=== PATIENT | female | born 1955 | race Caucasian/White ===

== ENCOUNTER 2017-09-14 10:03 | Observation (INO) ==
[2017-09-14] MEDS ORDERED: Ondansetron 4 MG/2 ML VIAL IVP ONE ×2 (10:16→13:04)
[2017-09-14] MEDS ORDERED: *HR* Morphine 2 MG/ML SYRINGE IVP ONE ×2 (10:16→13:04)
--- NOTE | 2017-09-14 10:17 | Emergency Department Note ---
Disposition Clinical Impression: Compression fracture of body of thoracic vertebra Disposition: Admitted As Inpatient Condition: Good Fall HPI - General Stated Complaint: Fell down stairs - History of Present Illness HPI Narrative: 62-year-old white female presents emergency department via ambulance after a fall at home. She says that she was going down her stairs to use the bathroom when she slipped and fell. She says that she fell down 2 or 3 steps and then ended up on her backside. She complains of pain in her lower back. She says that she has never had a problem with her back that she could remember. She denies any other injuries at this time. En route EMS thought that she was having a cardiac abnormality and were concerned about a low heart rate. The patient denies any dizziness or chest pain prior to or after her fall. Her position of comfort is laying flat. - Related Data Home Medications Medication Instructions Recorded Confirmed Aspirin [Lo-Dose Aspirin EC] 81 mg PO DAILY 09/14/17 09/14/17 Isosorbide MONOnitrate [Isosorbide 60 mg PO DAILY 09/14/17 09/14/17 Mononitrate] LORazepam [Ativan] 0.5 mg PO TID 09/14/17 09/14/17 Metoprolol [Lopressor] 12.5 mg PO BID 09/14/17 09/14/17 Omeprazole [PriLOSEC] 20 mg PO DAILY 09/14/17 09/14/17 Rosuvastatin [Crestor] 20 mg PO HS 09/14/17 09/14/17 Previous Rx's Medication Instructions Recorded Cyclobenzaprine [Flexeril] 10 mg PO TID #15 tablet 09/14/17 Docusate [Colace] 100 mg PO BID #20 capsule 09/14/17 Ibuprofen [Motrin] 800 mg PO Q8HR #15 tablet 09/14/17 OxyCODONE/APAP 5/325 [Percocet 1 each PO Q4HR PRN #10 tablet 09/14/17 5/325 MG] Allergies Allergy/AdvReac Type Severity Reaction Status Date / Time No Known Allergies Allergy Verified 09/14/17 10:20 All systems ED: reviewed and negative except as stated. Constitutional: Denies: fever, chills, weakness, weight change Eyes: Denies: eye pain, eye discharge, vision change ENT ED: Denies: ear pain, throat pain, dental pain, hearing loss, epistaxis, congestion, dysphagia Cardiovascular: Reports: as per HPI. Denies: chest pain, palpitations Respiratory: Denies: cough, dyspnea, wheezes, hemoptysis, stridor Gastrointestinal: Denies: abdominal pain, nausea, vomiting, diarrhea, constipation, hematemesis, melena, hematochezia Genitourinary: Denies: dysuria, frequency, hematuria, discharge Musculoskeletal: Reports: as per HPI, back pain. Denies: neck pain, arthralgia Integumentary: Denies: rash, abrasion, lesions Neurological: Reports: as per HPI. Denies: headache, weakness, numbness, paresthesias, confusion, abnormal gait, vertigo Psychiatric: Denies: anxiety, depression, suicidal thoughts, homicidal thoughts , auditory hallucinations, visual hallucinations Endocrine: Denies: fatigue Hematological/Lymphatic: Denies: easy bleeding, easy bruising Allergic/Immunologic: Denies: facial swelling, urticaria Physical Exam - General Limitations: no limitations General appearance: alert, in no apparent distress - Head Head exam: atraumatic, normocephalic, normal inspection - Eye Eye exam: Present: normal appearance, PERRL, EOMI - ENT ENT exam: normal exam, normal oropharynx, mucous membranes moist - Neck Neck exam: Present: normal inspection, full ROM, trachea midline. Absent: tenderness (No cervical spine tender points or step-off palpated) - Chest Chest inspection: Present: normal inspection, symmetric chest wall rise - Respiratory Respiratory exam: Present: normal lung sounds bilaterally - Cardiovascular Cardiovascular exam: Present: regular rate, normal rhythm, normal heart sounds - Abdominal Exam Abdominal exam: Present: soft, Non-Tender, mass, other (Ventral hernia that appears to be incisional, nontender). Absent: tenderness, distention, guarding , rebound, rigidity, organomegaly - Extremities Exam Extremities exam: Present: normal inspection, full ROM, normal capillary refill. Absent: tenderness, pedal edema - Expanded Lower Extremity Exam Hip/Pelvis exam: Present: normal inspection, full ROM. Absent: tenderness, deformity, crepitus, dislocation Upper leg exam: Present: normal inspection, full ROM. Absent: tenderness - Back Exam Back exam: Present: normal inspection, other (Pain with flexion and extension of the low back without vertebral spine tender points that are palpable.). Absent: full ROM, paraspinal tenderness, vertebral tenderness - Neurological Exam Neurological exam: Present: alert, oriented X3, CN II-XII intact. Absent: motor sensory deficit - Psychiatric Psychiatric exam: Present: normal affect, normal mood - Skin Skin exam: Present: warm, dry, intact, normal color Course Course Narrative: The patient remained stable throughout her emergency department stay. We discussed admission for pain control or an outpatient trial. She would prefer to be discharged home and try to control her pain there without a hospital admission. Vital Signs Temperature 97.5 F L 09/14/17 10:12 Pulse Rate 52 09/14/17 10:12 Respiratory Rate 16 09/14/17 10:12 Blood Pressure 111/64 09/14/17 10:12 O2 Sat by Pulse Oximetry 97 09/14/17 10:12 Temperature 97.5 F L 09/14/17 10:12 Pulse Rate 61 09/14/17 13:41 Respiratory Rate 16 09/14/17 13:41 Blood Pressure 115/64 09/14/17 13:41 O2 Sat by Pulse Oximetry 93 09/14/17 13:41 Oxygen Delivery Oxygen Delivery Room Air Fall - Lab Data Lab results reviewed: Yes I reviewed the patient's lab results. Result diagrams: 09/14/17 10:30 09/14/17 10:30 Lab Results 09/14/17 09/14/17 09/14/17 Range/Units 10:30 10:30 10:30 WBC 9.1 (4.3-11.1) K/mcL RBC 4.75 (3.82-4.97) M/mcL Hgb 14.6 (11.5-15.4) g/dL Hct 43.6 (35.3-44.9) % MCV 91.8 (83.0-100.0) fL MCH 30.7 (28.0-33.3) pg MCHC 33.5 (31.6-35.5) g/dL RDW 13.1 (11.5-14.5) % Plt Count 160 (140-400) K/mcL MPV 11.5 (9.4-12.4) fL Immature Gran % 0.8 (0-4) % Seg Neutrophils % 63.5 % Lymphocytes % 24.6 % Monocytes % 7.3 % Eosinophils % 2.9 % Basophils % 0.9 % Neutrophils # 5.8 (1.6-8.9) K/mcL Lymphocytes # 2.2 (0.6-4.6) K/mcL Monocytes # 0.7 (0.0-1.3) K/mcL Eosinophils # 0.3 (0.0-0.6) K/mcL Basophils # 0.1 (0.0-0.2) K/mcL PT 11.1 (9.4-12.1) Seconds INR 1.0 Sodium 141 (136-145) mEq/L Potassium 3.9 (3.5-4.5) mEq/L Chloride 108 (98-109) mEq/L Carbon Dioxide 25 (19-29) mEq/L BUN 17 (7-20) mg/dL Creatinine 0.78 (0.57-1.11) mg/dL Est GFR ( Amer) > 60 (> 60) Est GFR (Non-Af Amer) > 60 (> 60) BUN/Creatinine Ratio 22 (6-26) Glucose 114 H (70-99) mg/dL Calculated Osmolality 294 (280-300) Calcium 9.4 (8.6-10.8) mg/dL Total Bilirubin 0.2 (0.2-1.2) mg/dL AST 18 (5-34) Units/L ALT 15 (0-55) Units/L Alkaline Phosphatase 140 H (38-126) Units/L Troponin I (0-0.03) ng/mL Serum Total Protein 6.6 (6.0-8.3) g/dL Albumin 3.3 L (3.5-5.0) g/dL Globulin 3.3 (2.4-3.5) g/dL Albumin/Globulin Ratio 1.0 L (1.1-2.2) Urine Color (Yellow) Urine Clarity (Clear) Urine pH (5.0-8.0) pH Units Ur Specific [place] (1.010-1.025) Urine Protein (Neg-Trace) mg/dL Urine Glucose (UA) (Normal) mg/dL Urine Ketones (Negative) mg/dL Urine Blood (Negative) Urine Nitrite (Negative) Urine Bilirubin (Negative) Urine Urobilinogen (Normal) mg/dL Ur Leukocyte Esterase (Negative) Ur Culture Indicated? (NO) 09/14/17 09/14/17 Range/Units 10:30 12:55 WBC (4.3-11.1) K/mcL RBC (3.82-4.97) M/mcL Hgb (11.5-15.4) g/dL Hct (35.3-44.9) % MCV (83.0-100.0) fL MCH (28.0-33.3) pg MCHC (31.6-35.5) g/dL RDW (11.5-14.5) % Plt Count (140-400) K/mcL MPV (9.4-12.4) fL Immature Gran % (0-4) % Seg Neutrophils % % Lymphocytes % % Monocytes % % Eosinophils % % Basophils % % Neutrophils # (1.6-8.9) K/mcL Lymphocytes # (0.6-4.6) K/mcL Monocytes # (0.0-1.3) K/mcL Eosinophils # (0.0-0.6) K/mcL Basophils # (0.0-0.2) K/mcL PT (9.4-12.1) Seconds INR Sodium (136-145) mEq/L Potassium (3.5-4.5) mEq/L Chloride (98-109) mEq/L Carbon Dioxide (19-29) mEq/L BUN (7-20) mg/dL Creatinine (0.57-1.11) mg/dL Est GFR ( Amer) (> 60) Est GFR (Non-Af Amer) (> 60) BUN/Creatinine Ratio (6-26) Glucose (70-99) mg/dL Calculated Osmolality (280-300) Calcium (8.6-10.8) mg/dL Total Bilirubin (0.2-1.2) mg/dL AST (5-34) Units/L ALT (0-55) Units/L Alkaline Phosphatase (38-126) Units/L Troponin I 0.01 (0-0.03) ng/mL Serum Total Protein (6.0-8.3) g/dL Albumin (3.5-5.0) g/dL Globulin (2.4-3.5) g/dL Albumin/Globulin Ratio (1.1-2.2) Urine Color Yellow (Yellow) Urine Clarity Clear (Clear) Urine pH 7.0 (5.0-8.0) pH Units Ur Specific [place] 1.015 (1.010-1.025) Urine Protein 30 H (Neg-Trace) mg/dL Urine Glucose (UA) Normal (Normal) mg/dL Urine Ketones Negative (Negative) mg/dL Urine Blood Negative (Negative) Urine Nitrite Negative (Negative) Urine Bilirubin Negative (Negative) Urine Urobilinogen Normal (Normal) mg/dL Ur Leukocyte Esterase Negative (Negative) Ur Culture Indicated? NO (NO) - Radiology Data Radiology results reviewed: Yes I reviewed the patient's radiology results. CT scan of the abdomen and pelvis with IV contrast IMPRESSION: Acute T12 compression fracture with loss of 30% of vertebral body height. Slight retropulsion is identified of posterosuperior endplate. Cholelithiasis. No acute visceral injury. Small to moderate-sized infraumbilical lower abdominal wall hernia in the midline containing a loop of small bowel. Moderate to large left supraumbilical hernia containing small bowel. No bowel obstruction is evident. Both hernias have increased in size since previous exam of 2013. D/ / 09/14/2017 12:10:03 Amrik Leggett MD / gianni Interpreting Provider: Amrik Leggett MD
[2017-09-14 10:50] LABS: Basophils # 0.1 K/mcL (0.0-0.2); Basophils % 0.9 %; Eosinophils # 0.3 K/mcL (0.0-0.6); Eosinophils % 2.9 %; Hematocrit 43.6 % (35.3-44.9); Hemoglobin 14.6 g/dL (11.5-15.4); Immature Granulocytes % 0.8 % (0-4); Lymphocytes # 2.2 K/mcL (0.6-4.6); Lymphocytes % 24.6 %; Mean Corpuscular HGB Conc 33.5 g/dL (31.6-35.5); Mean Corpuscular Hemoglobin 30.7 pg (28.0-33.3); Mean Corpuscular Volume 91.8 fL (83.0-100.0); Mean Platelet Volume 11.5 fL (9.4-12.4); Monocytes # 0.7 K/mcL (0.0-1.3); Monocytes % 7.3 %; Neutrophils # 5.8 K/mcL (1.6-8.9); Platelet Count 160 K/mcL (140-400); Red Blood Count 4.75 M/mcL (3.82-4.97); Red Cell Distribution Width 13.1 % (11.5-14.5); Segmented Neutrophils % 63.5 %
[2017-09-14 10:51] LABS: Prothrombin Time 11.1 Seconds (9.4-12.1)
[2017-09-14 11:03] LABS: Alanine Aminotransferase 15 Units/L (0-55); Albumin 3.3 g/dL (3.5-5.0); Alkaline Phosphatase 140 Units/L (38-126); Aspartate Amino Transferase 18 Units/L (5-34); BUN/Creatinine Ratio 22 (6-26); Bilirubin,Total 0.2 mg/dL (0.2-1.2); Blood Urea Nitrogen 17 mg/dL (7-20); Calcium 9.4 mg/dL (8.6-10.8); Carbon Dioxide 25 mEq/L (19-29); Chloride 108 mEq/L (98-109); Globulin 3.3 g/dL (2.4-3.5); Glucose 114 mg/dL (70-99); Osmolality,Calculated 294 (280-300); Potassium 3.9 mEq/L (3.5-4.5); Sodium 141 mEq/L (136-145); Total Protein 6.6 g/dL (6.0-8.3); eGFR For African Americans > 60 (> 60); eGFR For Non-African Americans > 60 (> 60)
[2017-09-14 12:59] LABS: Bilirubin,Urine Negative (Negative); Blood,Urine Negative (Negative); Clarity,Urine Clear (Clear); Color,Urine Yellow (Yellow); Glucose,Urine (UA) Normal (Normal); Ketones,Urine Negative (Negative); Leukocyte Esterase,Urine Negative (Negative); Nitrite,Urine Negative (Negative); Protein,Urine 30 mg/dL (Neg-Trace); Specific Gravity,Urine 1.015 (1.010-1.025); Urobilinogen,Urine Normal (Normal)
[2017-09-14] MEDS ORDERED: Ketorolac 30 MG/ML VIAL IVP ONE (13:04)
[2017-09-14] MEDS ORDERED: Orphenadrine 60 MG/2 ML VIAL IVP PRN ×2 (13:04→17:35)
[2017-09-14] MEDS ORDERED: Ondansetron 4 MG/2 ML VIAL IVP PRN (17:35)
[2017-09-14] MEDS ORDERED: 0.9 % Sodium Chloride 1,000 ML IVC SCH (17:35)
[2017-09-14] MEDS ORDERED: Acetaminophen 325 MG TABLET PO PRN (17:35)
[2017-09-14] MEDS ORDERED: Ondansetron ODT 4 MG TAB.RAPDIS SL PRN (17:35)
[2017-09-14] MEDS ORDERED: *HR* Morphine 2 MG/ML SYRINGE IVP PRN (17:35)
[2017-09-14] MEDS ORDERED: *HR* HYDROmorphone (PF) 1 MG/ML SYRINGE IVP PRN (17:35)
[2017-09-14] MEDS ORDERED: Naloxone 0.4 MG/ML INJ IVP PRN (17:35)
[2017-09-14] MEDS: *HR* OxyCODONE Immed Rel 5 MG TABLET PO PRN (18:33)
[2017-09-14] MEDS ORDERED: Isosorbide MONOnitrate (24 HR) 60 MG TAB.ER.24H PO SCH (21:00)
[2017-09-14] MEDS ORDERED: *HR* LORazepam 0.5 MG TABLET PO SCH (21:00)
--- NOTE | 2017-09-14 21:42 | Internal Med History&Physical ---
Date of Encounter: 09/14/17 Time of Encounter: 21:02 Assessment and Plan (1) Compression fracture of body of thoracic vertebra Current visit: Yes Status: Acute Patient is admitted in observation bed with history of compression fracture of T12 from her fall against the step. Surprisingly she does not have tenderness in that area on palpation. She has a loss of 30% of the vertebral body height and slight retropulsion identified of the posterior superior endplate. Tonight , few hours after admission, she is resting comfortably. Tomorrow she will have PT, OT to reassess her pain level. We need to be sure she can maintain her ADLs safely before discharge to home. (2) Coronary artery disease involving autologous artery coronary bypass graft Current visit: Yes Status: Chronic History of coronary artery disease and bypass surgery twice. She has had no cardiac respiratory symptoms. We will continue her current medications. Qualifiers: Associated angina: without angina Qualified Code(s): I25.810 - Atherosclerosis of coronary artery bypass graft(s) without angina pectoris (3) Hypertension Current visit: Yes Status: Chronic Hypertension is under control despite the severe pain Qualifiers: Hypertension type: essential hypertension Qualified Code(s): I10 - Essential (primary) hypertension (4) Hyperlipidemia Current visit: Yes Status: Chronic Chronic history of hyperlipidemia Qualifiers: Hyperlipidemia type: unspecified Qualified Code(s): E78.5 - Hyperlipidemia , unspecified (5) Incisional hernia of anterior abdominal wall without obstruction or gangrene Current visit: Yes Status: Chronic Uncomplicated large left periumbilical hernia. (6) DVT prophylaxis Current visit: Yes Status: Acute We will use Lovenox for DVT prophylaxis as she will be likely be bedridden Internal Medicine - H&P: HPI Chief complaint: I fell and hurt my back Admitted From: Emergency Dept Plans for Post Hospital Care: Home History of present illness: Ms. Ulloa is a 62 year old female with known history of coronary artery disease and CABG twice, hypertension, acid reflux, history of abdominal aortic aneurysm repair 2011 with resultant incisional hernia. She was to usual self today until when walking down 16 steps in the morning to have a cup of coffee she fell on the last 5. Her foot slipped forward she slid down 2-3 steps and then she "hit one of them hard" and she fell backward and hit her back against the horizontal portion of one of the steps. She was in severe pain and could not move out of that position. The life squad came and transported her to the emergency room. Her pain was severe and she had at least 2 intravenous doses of MS Contin, IV Toradol and Norvasc to give her some relief. It was reported that she was still not able to stand to be able to leave the emergency room because of severe back pain. CT scan of the abdomen revealed acute T12 compression fracture with loss of 30% of vertebral body height. There was slight retropulsion identified of the posterior superior endplate. Rest of the CT scan was unremarkable except for very large supraumbilical hernia containing bowel without complication. She said that right now she is resting fairly comfortably. She keeps the head of her bed at about 45 degree angle she has no complaints. She denies any cardiac type chest pain, dyspnea, GI or symptoms. She denies any pain radiating down either leg or radiating elsewhere. She does not have any history of osteoporosis, but she has not had a DEXA scan for evaluation. Past Med Surg Social Fam HX - Past Medical History Medical history: CHF (In remote past. No CHF for many years.), coronary artery disease (CABG 1994 and 2007), GERD, hyperlipidemia, hypertension, myocardial infarction Psychiatric history: anxiety (Controlled with minimal amount of lorazepam. No escalation of its use. No abuse noted.) - Past Surgical History Surgical History: coronary bypass (CABG) (1994 and 2007), other (Aortic aneurysm repair and subsequent periumbilical hernia) - Social History Smoking Status: Current every day smoker Smokeless Tobacco Status: No Alcohol use: none Drug use: none Internal Medicine - H&P: Meds Aspirin [Lo-Dose Aspirin EC] 81 mg PO DAILY 09/14/17 [History] Docusate [Colace] 100 mg PO BID #20 capsule 09/14/17 [Rx] Ibuprofen [Motrin] 800 mg PO Q8HR #15 tablet 09/14/17 [Rx] Isosorbide MONOnitrate [Isosorbide Mononitrate] 30 mg PO BID 09/14/17 [History] LORazepam [Ativan] 0.5 mg PO TID 09/14/17 [History] Metoprolol Succinate 12.5 mg PO BID 09/14/17 [History] Omeprazole [PriLOSEC] 40 mg PO DAILY 09/14/17 [History] Rosuvastatin [Crestor] 40 mg PO HS 09/14/17 [History] 3 Allergy/AdvReac Type Severity Reaction Status Date / Time No Known Allergies Allergy Verified 09/14/17 10:20 - Constitutional Constitutional: falls (As in history of present illness), no fever(s), no malaise, no weakness - EENT Eyes: loss of vision (Clinically 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), no change in vision, no tunnel vision, no other visual disturbances Ears: no ear pain Nose, mouth and throat: no neck mass, no neck pain, no sore throat - Cardiovascular Cardiovascular ROS IM: no chest pain, no claudication, no dyspnea, no dyspnea on exertion, no edema, no lightheadedness, no orthopnea, no syncope - Respiratory Respiratory: no cough, no hemoptysis, no dyspnea on exertion, no wheezing - Gastrointestinal Gastrointestinal: no abdominal pain, no constipation, no diarrhea - Genitourinary Genitourinary: no dysuria, no flank pain, no urinary frequency, no urinary hesitancy, no vaginal discharge Menstruation: post menopausal - Musculoskeletal Musculoskeletal ROS IM: back pain (As history of present illness), no joint swelling, no muscle cramps, no muscle weakness - Integumentary Integumentary IM: no rash, no jaundice - Neurological Neurological ROS: no abnormal movements, no abnormal speech, no behavioral changes, no focal weakness, no headache(s), no lack of coordination, no loss of vision, no memory loss, no numbness, no paresthesias, no radicular pain - Hematologic/Lymphatic Hematologic/Lymphatic: no lymphadenopathy - Allergic/Immunologic Allergic/Immunologic: no uticaria, no wheezing - Constitutional Vitals: Temp Pulse Resp BP Pulse Ox 97.5 F L 61 16 113/60 93 09/14/17 16:42 09/14/17 13:41 09/14/17 16:42 09/14/17 16:42 09/14/17 13:41 General appearance: Present: mild distress, A&O X 3, answers questions appropriately - Head Head exam: Present: atraumatic - Eye Eye exam: Present: PERRL, conjuntiva pink. Absent: EOMI (She has disconjugate gaze at times because the right eye is blind.) - ENT ENT exam: Present: mucous membranes moist, normal exam, normal oropharynx - Neck Neck exam general surgery: Present: normal inspection, nuchal rigidity. Absent : lymphadenopathy, tenderness, thyromegaly - Respiratory Respiratory exam: Present: decreased breath sounds, CTAB. Absent: rales, respiratory distress, rhonchi, stridor - Cardiovascular Cardiovascular exam: Present: RRR, +S1, +S2. Absent: systolic murmur, tachycardia - GI/Abdominal GI/Abdominal exam: Present: diminished bowel sounds. Absent: bruit, hernia, hepatomegaly, rigid, splenomegaly, tenderness Additional comments: Patient chronically has a large incisional hernia. It measures wider than my hand. It is soft and nontender. - Extremities Exam Extremities exam: Present: full ROM. Absent: calf tenderness, pedal edema, tenderness, radial pulses palpable and symmetrical - Back Exam Additional comments: Surprisingly there is no tenderness on palpation over midline spine or paraspinal muscles. She was able to sit at the edge of the bed with much assistance. She needed help getting back into bed, I held her legs to help swing her legs back up onto the bed. 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 Absent: no focal deficits, facial droop - Skin Skin exam: Absent: excoriation, mottled, petechiae, rash Internal Med - H&P Results - Labs CBC & Chem 7: 09/14/17 10:30 09/14/17 10:30 Labs: Labs have been reviewed. Minimal glucose elevation.
[2017-09-14] MEDS ORDERED: Isosorbide MONOnitrate (24 HR) 30 MG TAB.ER.24H PO SCH (21:43)
[2017-09-14] MEDS: Metoprolol XL (24 HR) Succ 25 MG TAB.ER.24H PO SCH (23:01)
[2017-09-14] MEDS: *HR* LORazepam 0.5 MG TABLET PO PRN (23:02)
[2017-09-15] MEDS: *HR* OxyCODONE Immed Rel 5 MG TABLET PO PRN ×2 (04:34→13:10)
[2017-09-15] MEDS ORDERED: *HR* Enoxaparin 40 MG/0.4 ML SYRINGE SQ SCH (06:00)
--- NOTE | 2017-09-15 07:06 | Internal Med Progress Note ---
Date of Encounter: 09/15/17 Time of Encounter: 07:06 - Assessment and plan (1) Compression fracture of body of thoracic vertebra Current Visit: Yes Status: Acute Assessment and plan: Severe pain in the dorsal spine area. Surprisingly there is not tenderness on palpation though. Her mobility is improving but she still needs assistance with even sitting up in bed. We will continue with the Roxicodone as well as the Norflex. PT and OT will see her today regarding therapies, grooming and ADLs, assessing her limitations and safety issues. (2) Coronary artery disease involving autologous artery coronary bypass graft Current Visit: Yes Status: Chronic Assessment and plan: No cardiac or respiratory symptoms. Qualifiers: Associated angina: without angina Qualified Code(s): I25.810 - Atherosclerosis of coronary artery bypass graft(s) without angina pectoris (3) Hypertension Current Visit: Yes Status: Chronic Assessment and plan: Hypertension is under control Qualifiers: Hypertension type: essential hypertension Qualified Code(s): I10 - Essential (primary) hypertension (4) Hyperlipidemia Current Visit: Yes Status: Chronic Qualifiers: Hyperlipidemia type: unspecified Qualified Code(s): E78.5 - Hyperlipidemia , unspecified (5) Incisional hernia of anterior abdominal wall without obstruction or gangrene Current Visit: Yes Status: Chronic Assessment and plan: No palpitations or incisional hernia. We will see how she does with her binder. This may actually be helpful for her back. (6) DVT prophylaxis Current Visit: Yes Status: Acute - Subjective Interval history: Patient thinks she did well through the night. She continues to have low thoracic and lumbar pain. She denies a cardiac symptoms. She denies respiratory symptoms. No GI or symptoms. She denies any pain or weakness in lower extremities. In the middle of the night she did have the muscle relaxer again that she did have spasm in the back. She had Roxicodone at approximately 6:30 PM and then again in the middle the night. - Constitutional Vitals: Temp Pulse Resp BP Pulse Ox 98.3 F 67 16 130/79 90 09/15/17 07:02 09/15/17 07:02 09/15/17 07:02 09/15/17 07:02 09/15/17 07:02 General appearance: Present: mild distress, A&O X 3, answers questions appropriately - Respiratory Respiratory exam: Present: decreased breath sounds, CTAB - Cardiovascular Cardiovascular exam: Present: RRR, +S1, +S2, systolic murmur (1 the 2/6 systolic murmur) - GI/Abdominal GI/Abdominal exam: Present: soft. Absent: tenderness Additional comments: Her chronic large incisional hernia is present without complication or tenderness. - Extremities Exam Extremities exam: Present: full ROM. Absent: calf tenderness, tenderness Additional comments: Can bend her knees and lower extremities in bed without difficulty. - Back Exam Back exam: Present: paraspinal tenderness (Mild paraspinal tenderness.). Absent : vertebral tenderness (No localizing vertebral tenderness or drop off or deformity) Additional comments: She was able to go from 45 degrees supine to seated upright by grabbing onto bed side rails. To get back into bed she needed assistance lifting her legs swinging them back onto the bed. She had moderate distress. - Neurological Exam Neurological exam: Present: no focal deficits Internal Medicine: Result - Labs CBC & Chem 7: 09/14/17 10:30 09/14/17 10:30 - ABG Interpretation ABG results: PT/INR, D-dimer PT 11.1 Seconds (9.4-12.1) 09/14/17 10:30 - VTE Documentation of Mechanical Device: Graduated compression elastic hosiery Consult Discharge Plan - Plan Referrals: Emeterio Augustine MD [Primary Care Provider] -
[2017-09-15] MEDS: Ibuprofen 400 MG TABLET PO PRN ×2 (08:15→14:40)
[2017-09-15] MEDS: Metoprolol XL (24 HR) Succ 25 MG TAB.ER.24H PO SCH (08:17)
[2017-09-15] MEDS ORDERED: Isosorbide MONOnitrate (24 HR) 60 MG TAB.ER.24H PO SCH (09:00)
[2017-09-15] MEDS ORDERED: Aspirin Enteric Coated 81 MG Tablet PO SCH (09:00)
[2017-09-15 11:46] VITALS: BP 125/68
--- NOTE | 2017-09-15 12:52 | Electrocardiograph Report ---
[place] [id number] Test Date: 2017-09-14 Pat Name: Daphne Ulloa Department: 2000 Room: 113 Gender: F Chief Psychologist: : 1955 Requested By: Filipe Solis Order Number: [id number] Reading MD: Kymberly Merrill Measurements Intervals [place] Rate: 53 P: 65 NH: 160 QRS: -48 QRSD: 102 T: -49 QT: 469 QTc: 453 Interpretive Statements SINUS BRADYCARDIA LEFT ANTERIOR FASCICULAR BLOCK ST DEVIATION AND MODERATE T-WAVE ABNORMALITY, CONSIDER ANTEROLATERAL ISCHEMIA ST DEVIATION AND MODERATE T-WAVE ABNORMALITY, CONSIDER INFERIOR ISCHEMIA Electronically Signed On 09-15-2017 12:51:01 EDT by Kymberly Merrill
[2017-09-15] MEDS: *HR* LORazepam 0.5 MG TABLET PO PRN (14:40)
--- NOTE | 2017-09-15 15:51 | Discharge Summary ---
Date of Encounter: 09/15/17 Time of Encounter: 15:46 - Discharge Diagnosis (1) Compression fracture of body of thoracic vertebra Priority: Primary Status: Acute Comments: Patient was admitted to the hospital in observation status having fallen down the steps and sustaining compression fracture of T12. She was basically immobile and not able to go home from the ER. She was treated with parenteral morphine and Norflex. She did quite well. She used a minimal amount of oxycodone. She was seen by OT and PT advance her ADLs and before discharge was able to ambulate in the hallway. At this point we recommended conservative ongoing care and time. If she is not able to advance in her ADLs safely and avoid pain medication she will notify me. Neurologically she remained intact the entire time. (2) Coronary artery disease involving autologous artery coronary bypass graft Priority: Secondary Status: Chronic Comments: Patient has a history of CAD and CABG 2 operations. She had no angina or congestive heart failure during her hospitalization. Her medications were not changed. Qualifiers: Associated angina: without angina Qualified Code(s): I25.810 - Atherosclerosis of coronary artery bypass graft(s) without angina pectoris (3) Hypertension Priority: Secondary Status: Chronic Comments: Hypertension remained under good control. Labs were stable. Medications continued. Qualifiers: Hypertension type: essential hypertension Qualified Code(s): I10 - Essential (primary) hypertension (4) Hyperlipidemia Priority: Secondary Status: Chronic Qualifiers: Hyperlipidemia type: unspecified Qualified Code(s): E78.5 - Hyperlipidemia , unspecified (5) Incisional hernia of anterior abdominal wall without obstruction or gangrene Priority: Secondary Status: Chronic Comments: case from her chronic umbilical hernia. She will resume use of her abdominal binder (6) DVT prophylaxis Priority: Secondary Status: Inactive - Discharge Medications Home Medications: Aspirin [Lo-Dose Aspirin EC] 81 mg PO DAILY 09/14/17 [History] Isosorbide MONOnitrate [Isosorbide Mononitrate] 30 mg PO BID 09/14/17 [History] Metoprolol Succinate 12.5 mg PO BID 09/14/17 [History] Omeprazole [PriLOSEC] 40 mg PO DAILY 09/14/17 [History] Rosuvastatin [Crestor] 40 mg PO HS 09/14/17 [History] Acetaminophen [Tylenol] 650 mg PO Q6HR PRN tablet 09/15/17 [Rx] Ibuprofen [Motrin] 400 mg PO Q6HR PRN tablet 09/15/17 [Rx] LORazepam [Ativan] 0.25 mg PO BID PRN tablet 09/15/17 [Rx] OxyCODONE Immed Rel [Roxicodone 5 MG] 5 mg PO Q6HR PRN tablet 09/15/17 [Rx] Allergies/Adverse Reactions: 3 Allergy/AdvReac Type Severity Reaction Status Date / Time No Known Allergies Allergy Verified 09/14/17 10:20 Procedures/tests Complete & Pending: Lab Results 09/14/17 09/14/17 09/14/17 Range/Units 10:30 10:30 10:30 WBC 9.1 (4.3-11.1) K/mcL RBC 4.75 (3.82-4.97) M/mcL Hgb 14.6 (11.5-15.4) g/dL Hct 43.6 (35.3-44.9) % MCV 91.8 (83.0-100.0) fL MCH 30.7 (28.0-33.3) pg MCHC 33.5 (31.6-35.5) g/dL RDW 13.1 (11.5-14.5) % Plt Count 160 (140-400) K/mcL MPV 11.5 (9.4-12.4) fL Immature Gran % 0.8 (0-4) % Seg Neutrophils % 63.5 % Lymphocytes % 24.6 % Monocytes % 7.3 % Eosinophils % 2.9 % Basophils % 0.9 % Neutrophils # 5.8 (1.6-8.9) K/mcL Lymphocytes # 2.2 (0.6-4.6) K/mcL Monocytes # 0.7 (0.0-1.3) K/mcL Eosinophils # 0.3 (0.0-0.6) K/mcL Basophils # 0.1 (0.0-0.2) K/mcL PT 11.1 (9.4-12.1) Seconds INR 1.0 Sodium 141 (136-145) mEq/L Potassium 3.9 (3.5-4.5) mEq/L Chloride 108 (98-109) mEq/L Carbon Dioxide 25 (19-29) mEq/L BUN 17 (7-20) mg/dL Creatinine 0.78 (0.57-1.11) mg/dL Est GFR ( Amer) > 60 (> 60) Est GFR (Non-Af Amer) > 60 (> 60) BUN/Creatinine Ratio 22 (6-26) Glucose 114 H (70-99) mg/dL Calculated Osmolality 294 (280-300) Calcium 9.4 (8.6-10.8) mg/dL Total Bilirubin 0.2 (0.2-1.2) mg/dL AST 18 (5-34) Units/L ALT 15 (0-55) Units/L Alkaline Phosphatase 140 H (38-126) Units/L Troponin I (0-0.03) ng/mL Serum Total Protein 6.6 (6.0-8.3) g/dL Albumin 3.3 L (3.5-5.0) g/dL Globulin 3.3 (2.4-3.5) g/dL Albumin/Globulin Ratio 1.0 L (1.1-2.2) Urine Color (Yellow) Urine Clarity (Clear) Urine pH (5.0-8.0) pH Units Ur Specific [place] (1.010-1.025) Urine Protein (Neg-Trace) mg/dL Urine Glucose (UA) (Normal) mg/dL Urine Ketones (Negative) mg/dL Urine Blood (Negative) Urine Nitrite (Negative) Urine Bilirubin (Negative) Urine Urobilinogen (Normal) mg/dL Ur Leukocyte Esterase (Negative) Ur Culture Indicated? (NO) 09/14/17 09/14/17 Range/Units 10:30 12:55 WBC (4.3-11.1) K/mcL RBC (3.82-4.97) M/mcL Hgb (11.5-15.4) g/dL Hct (35.3-44.9) % MCV (83.0-100.0) fL MCH (28.0-33.3) pg MCHC (31.6-35.5) g/dL RDW (11.5-14.5) % Plt Count (140-400) K/mcL MPV (9.4-12.4) fL Immature Gran % (0-4) % Seg Neutrophils % % Lymphocytes % % Monocytes % % Eosinophils % % Basophils % % Neutrophils # (1.6-8.9) K/mcL Lymphocytes # (0.6-4.6) K/mcL Monocytes # (0.0-1.3) K/mcL Eosinophils # (0.0-0.6) K/mcL Basophils # (0.0-0.2) K/mcL PT (9.4-12.1) Seconds INR Sodium (136-145) mEq/L Potassium (3.5-4.5) mEq/L Chloride (98-109) mEq/L Carbon Dioxide (19-29) mEq/L BUN (7-20) mg/dL Creatinine (0.57-1.11) mg/dL Est GFR ( Amer) (> 60) Est GFR (Non-Af Amer) (> 60) BUN/Creatinine Ratio (6-26) Glucose (70-99) mg/dL Calculated Osmolality (280-300) Calcium (8.6-10.8) mg/dL Total Bilirubin (0.2-1.2) mg/dL AST (5-34) Units/L ALT (0-55) Units/L Alkaline Phosphatase (38-126) Units/L Troponin I 0.01 (0-0.03) ng/mL Serum Total Protein (6.0-8.3) g/dL Albumin (3.5-5.0) g/dL Globulin (2.4-3.5) g/dL Albumin/Globulin Ratio (1.1-2.2) Urine Color Yellow (Yellow) Urine Clarity Clear (Clear) Urine pH 7.0 (5.0-8.0) pH Units Ur Specific [place] 1.015 (1.010-1.025) Urine Protein 30 H (Neg-Trace) mg/dL Urine Glucose (UA) Normal (Normal) mg/dL Urine Ketones Negative (Negative) mg/dL Urine Blood Negative (Negative) Urine Nitrite Negative (Negative) Urine Bilirubin Negative (Negative) Urine Urobilinogen Normal (Normal) mg/dL Ur Leukocyte Esterase Negative (Negative) Ur Culture Indicated? NO (NO) Abdomen/Pelvis CT 09/14/17 10:14 IMPRESSION: Acute T12 compression fracture with loss of 30% of vertebral body height. Slight retropulsion is identified of posterosuperior endplate. Cholelithiasis. No acute visceral injury. Small to moderate-sized infraumbilical lower abdominal wall hernia in the midline containing a loop of small bowel. Moderate to large left supraumbilical hernia containing small bowel. No bowel obstruction is evident. Both hernias have increased in size since previous exam of 2013. D/ / 09/14/2017 12:10:03 Amrik Leggett MD / gianni Interpreting Provider: Amrik Leggett MD Date of admission: 09/14/17 16:05 Primary care physician: Emeterio Augustine MD Discharging clinician: Emeterio Augustine Anticipated date of discharge: 09/15/17 - Patient Status Disposition: Home, Self-Care Condition: Good Functional capacity at discharge: independent ambulation Overall status at discharge: patient is progressing back to baseline - Discharge Instructions Follow Up With: Emeterio Augustine MD [Primary Care Provider] - - Diet and Activity Activity: increase activity as tolerated Diet: low fat, low cholesterol, low salt diet Interval History: Overnight she did recently well. She needed minimal medication. See the progress note. Hospital course: Ms. Ulloa is a 62 year old female admitted having fallen and sustained compression fracture of T12. Neurologically she was intact. She is unable to go home from the ear because of severe pain. She advanced appropriately well overnight and was ambulatory. She had OT and PT consultation evaluation and felt that she can maintain at home appropriately. She was discharged to home later in the afternoon. Please see the diagnoses above. - Time Spent with Patient Total time spent providing and/or coordinating discharge services: - Constitutional Vitals: Temp Pulse Resp BP Pulse Ox 98.3 F 51 16 125/68 93 09/15/17 11:46 09/15/17 11:46 09/15/17 11:46 09/15/17 11:46 09/15/17 11:46 General appearance: Present: mild distress (Mild distress when trying to sit up) , A&O X 3, no acute distress (No distress when resting supine), answers questions appropriately - Neck Neck exam general surgery: Absent: tenderness - Respiratory Respiratory exam: Present: decreased breath sounds, CTAB - Cardiovascular Cardiovascular exam: Present: RRR, +S1, +S2, systolic murmur (1/6 systolic murmur) - GI/Abdominal GI/Abdominal exam: Absent: mass, tenderness Additional comments: Chronic left periumbilical hernia without change - Extremities Exam Extremities exam: Absent: calf tenderness, pedal edema, tenderness - Back Exam Additional comments: Surprisingly the back was nontender on palpation. No drop off bruising or deformity noted. She did have severe pain when trying to sit up at the edge of the bed as well as lie back in the bed with paraspinal muscle tenderness and pain. 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
== END 2017-09-15 16:17 | disposition home or self-care (01) ==
LOC: EMEROOGRE 10:03 → INPGRE 10:03
PROVIDERS: ADMIT Family Medicine; ATTEND Family Medicine